=== PATIENT | female | born 1935 | race Caucasian/White ===

== ENCOUNTER → 2016-09-21 | Outpatient (CLI) | payer OTHER, MEDICARE ==
--- NOTE | 2016-09-21 19:56 | DX ---
Lumbar Spine, 2 Views HISTORY: Lumbar fusion June 2016. COMPARISON: August 2016. FINDINGS: Bilateral transpedicular screws and fusion rods at the L4, L5 and S1 levels with hardware i ntact. L4-L5 interbody metallic disc prosthesis noted. Severe disc space narrowing at L5-S1. Normal a lignment at L4-L5 and L5-S1. L3-L4 moderate disc space narrowing with minimal retrolisthesis and predominantly ventral osteophytes . L2 old moderate anterior wedge compression fracture with methyl methacrylate cement within the ventra l aspect vertebral body, L1-L2 disc space level, and extending ventrally and to the right of the L1 v ertebral body. No new compression fractures. Minimal retrolisthesis at L1-L2. L2-L3 moderate disc spa ce narrowing and mild retrolisthesis similar to previous study. Left total hip arthroplasty noted. Mild levoscoliosis. IMPRESSION: 1. No significant interval change. 2. L4-S1 discectomy with fusion hardware appearing intact. 3. L2 stable old moderate compression fracture. Consider DEXA bone scan evaluation for osteoporosis i f clinically indicated.
== END ==
LOC: FIMAGING 10:00
DX: Z09 Encounter for follow-up examination after completed treatment for conditions other than malignant neoplasm (principal); Z98.1 Arthrodesis status

== ENCOUNTER → 2017-01-04 | Outpatient (CLI) | payer OTHER, MEDICARE | LOC: FIMAGING 11:16 | PROVIDERS: ATTEND Physician Assistant | DX: Z09 Encounter for follow-up examination after completed treatment for conditions other than malignant neoplasm (principal); Z98.1 Arthrodesis status ==

== ENCOUNTER → 2017-01-20 | Outpatient (CLI) | payer OTHER, MEDICARE | LOC: FIMAGING 08:45 | PROVIDERS: ATTEND Physician Assistant | DX: M48.06 Spinal stenosis, lumbar region (principal); M99.71 Connective tissue and disc stenosis of intervertebral foramina of cervical region; Z98.1 Arthrodesis status ==

== ENCOUNTER → 2017-05-01 | Outpatient (CLI) | payer OTHER, MEDICARE | LOC: FIMAGING 09:13 | PROVIDERS: ATTEND Nurse Practitioner | DX: Z09 Encounter for follow-up examination after completed treatment for conditions other than malignant neoplasm (principal); Z98.1 Arthrodesis status ==

== ENCOUNTER → 2017-05-10 | Outpatient (CLI) | payer OTHER, MEDICARE | LOC: FIMAGING 09:54 | PROVIDERS: ATTEND Internal Medicine | DX: Z12.31 Encounter for screening mammogram for malignant neoplasm of breast (principal); N63 Unspecified lump in breast; Z85.3 Personal history of malignant neoplasm of breast | CPT/HCPCS: G0202 ==

== ENCOUNTER → 2017-05-16 | Outpatient (CLI) | payer OTHER, MEDICARE | LOC: FIMAGING 12:23 | PROVIDERS: ATTEND Internal Medicine | DX: Z12.39 Encounter for other screening for malignant neoplasm of breast (principal); N63 Unspecified lump in breast ==

== ENCOUNTER → 2017-05-24 | Outpatient (CLI) | payer OTHER, MEDICARE | LOC: FIMAGING 11:23 | PROVIDERS: ATTEND Physical Medicine & Rehabilitation | DX: Z13.83 Encounter for screening for respiratory disorder NEC (principal); Z85.3 Personal history of malignant neoplasm of breast; Z87.891 Personal history of nicotine dependence ==

== ENCOUNTER → 2017-05-30 | Outpatient (CLI) | payer OTHER, MEDICARE ==
[~2017-05-30] MED LIST: BUPIVACAINE 0.5% 10 ML SDV ONE; LIDO/EPI 1% **Not for Epidural 20 ML MDV ONE; LIDOCAINE 1% 300 MG/30 ML SDV ONE; THROMBIN (BOVINE) 5,000 UNIT VIAL TP ONE
== END ==
LOC: FIMAGING 08:13
PROVIDERS: ATTEND Internal Medicine
PROC: 0HBU3ZX Excision of Left Breast, Percutaneous Approach, Diagnostic (ICD-10-PCS; principal; 2017-05-30)
DX: D24.2 Benign neoplasm of left breast (principal)
CPT/HCPCS: 19083; G0206

== ENCOUNTER 2017-06-29 08:45 | Day surgery (SDC) | payer OTHER, MEDICARE ==
[2017-06-29] MEDS ORDERED: ceFAZolin 2 GM/SWFI 2 GM/20 ML SYR IVP ONE (09:18)
[2017-06-29] MEDS ORDERED: LR 1,000 ML IV SCH (09:18)
[2017-06-29] MEDS ORDERED: LIDOCAINE 1% 2 ML INJ ONE (09:20)
[2017-06-29] MEDS ORDERED: LR 1,000 ML IV ONE (09:36)
[2017-06-29] MEDS ORDERED: LIDOCAINE 1% 2 ML INJ ID PRN (09:36)
[2017-06-29] MEDS ORDERED: BUPIVACAINE 0.25% 30 ML SDV ONE ×2 (10:27→10:28)
[2017-06-29] MEDS ORDERED: LIDOCAINE 1% 300 MG/30 ML SDV ONE (10:29)
[2017-06-29] MEDS ORDERED: SODIUM BICARBONATE 10 MEQ/10 ML SYR IVP ONE (10:30)
--- NOTE | 2017-06-29 12:31 | PDHPUP ---
History & Physical Update H&P update statement: This history and physical update is based on an assessment of the patient which was completed after admission or registration (within 24 hours), but prior to the surgery/procedure. H&P update: H&P reviewed & patient examined, no change in patient's condition since H&P completed
--- NOTE | 2017-06-29 12:32 | PDANEPAE ---
ANE Past Medical History - Cardiovascular History Hx Hypertension: No Hx Arrhythmias: Yes Hx Chest Pain: No Hx Coronary Artery / Peripheral Vascular Disease: No Hx CHF / Valvular Disease: No Hx Palpitations: No Cardiovascular History Comment: svt. sa node ablations-2010. denies chest pain, palp since last ablation. hx murmurs.dx- atrial tachy. takes plavix. - Pulmonary History Hx COPD: Yes Hx Asthma/Reactive Airway Disease: No Hx Recent Upper Respiratory Infection: No Hx Oxygen in Use at Home: Yes O2 in Use at Home (L/minute): 2L NC while sleeping Hx Sleep Apnea: No Sleep Apnea Screening Result - Last Documented: Negative Pulmonary History Comment: smoked until 1975- smoked 20 yrs- 1/2ppd. wears 2lpm for altitude adjustment- if goes in to [facility], moved 5 yrs ago. has inhaler- mild copd, never uses. 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 hx cervical fx. hx vertigo- ok now. Six concussions- stage 2 x 5. - Endocrine History Hx Diabetes: No Endocrine History Comment: 2001- acute thyroiditis. 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 interstitual cystisis 1996 - Liver History Hx Hepatic Disorders: No - Neurological & Psychiatric Hx Hx Neurological and Psychiatric Disorders: No Neurological / Psychiatric History Comment: Stenosis/pain L2/L3 -back pain-no radiculopathy. INTERMITTENT VERTIGO - Cancer History Hx Cancer: Yes Cancer History Comment: breast ca- radiation, lumpectomy. 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 - Congenital Disorder History Hx Congenital Disorders: No - GI History Hx Gastrointestinal Disorders: Yes Gastrointestinal History Comment: gerd - Other Health History Other Health History: osteoporosis. pt was a rehab nurse/marble polisher. bridge-upper, bruises easily. osteoarthritis. - Chronic Pain History Chronic Pain: No - Surgical History Prior Surgeries: L5/S1 fused;. l shoulder replacement. r knee arthroplasty. reconstructed r ankle. l hip arthroplasty. 1975- r breast lumpectomy. c-sec x2. hysterectomy deborah ooph/salpin. ou- cataract surgery. blepheroplasty.appy. CAMACHO Review of Systems Review of Systems: - Exercise capacity METS (RN): 4 METS ANE Patient History - Allergies Allergies/Adverse Reactions: naproxen [From Naprosyn] Allergy (Severe, Verified 06/12/17 10:56) Anaphylaxis OPIOIDS Adverse Reaction (Uncoded 09/30/15 20:11) Vomiting - Home Medications Home Medications: CeleBREX 06/12/17 [Last Taken 1 Week Ago ~06/22/17] Gabapentin 06/12/17 [Last Taken 06/28/17] Tums 500MG (*) 06/12/17 [Last Taken 06/29/17] Nortriptyline HCl HS 06/29/17 [Last Taken 06/28/17] - NPO status NPO Since - Liquids (Date): 06/29/17 NPO Since - Liquids (Time): 07:00 NPO Since - Solids (Date): 06/28/17 NPO Since - Solids (Time): 18:30 - Smoking Hx Smoking Status: Former smoker - Family Anes Hx Family Hx Anesthesia Complications: none ANE Labs/Vital Signs - Vital Signs Blood Pressure: 139/68 Heart Rate: 58 Respiratory Rate: 14 O2 Sat (%): 95 Height: 154.94 cm Weight: 62.596 kg
[2017-06-29] MEDS ORDERED: MIDAZOLAM 2 MG/2 ML VIAL IVP ONE (12:35)
[2017-06-29] MEDS ORDERED: PROPOFOL/EMULSION 500 MG/50 ML BOTTLE IV ONE (12:46)
[2017-06-29] MEDS ORDERED: ONDANSETRON 4 MG/2 ML VIAL ONE (12:55)
[2017-06-29] MEDS ORDERED: fentaNYL 100 MCG/2 ML INJ IVP PRN (13:01)
[2017-06-29] MEDS ORDERED: ONDANSETRON 4 MG/2 ML VIAL IVP PRN (13:01)
[2017-06-29] MEDS ORDERED: NALOXONE HCL 0.4 MG/ML INJ IVP PRN (13:01)
--- NOTE | 2017-06-29 13:45 | POSTANESTH ---
Post Anesthetic Evaluation Cardiovascular Status: Normal, Stable Respiratory Status: Normal, Stable Level of Consciousness/Mental Status: Can Participate in Eval Pain Control: Adequate, Prn Tx Ordered Nausea/Vomiting Control: Adequate, Prn Tx Ordered Complications Possibly Related to Anesthesia: None Noted
[2017-06-29] MEDS ORDERED: HYDROCODONE/APAP 5/325 TAB PO PRN (13:48)
--- NOTE | 2017-06-29 13:48 | POSTOPPROG ---
Post Op Note Date of Operation: 06/29/17 Surgeon: Dominguez Jeff (, FACS) Anesthesiologist: Reggie Myers MD Pre-op Diagnosis: left breast mass Post-op Diagnosis: same Procedure: excisional biopsy left breast with mammo NL Findings: fibroglanduar breast tissue/ clip confirmed intra-op with specimen mammo Inf/Abcess present in the surg proc area at time of surgery?: No EBL: Minimal (10ml)
[2017-06-29 14:33] VITALS: TEMP 97
[2017-06-29 14:50] VITALS: BP 141/56; O2SAT 96
[2017-06-29 14:52] VITALS: PULSE 59; RESP 15
--- NOTE | 2017-06-29 19:34 | GOP ---
[f rep st] OPERATIVE REPORT DATE OF OPERATION: SURGEON: Dominguez Jeff MD, FACS ANESTHESIA: Monitored anesthesia care. ANESTHESIOLOGIST: Angel Myers MD. PREOPERATIVE DIAGNOSIS: Left breast mass. POSTOPERATIVE DIAGNOSIS: Left breast mass. PROCEDURE PERFORMED: Left excisional breast biopsy with preoperative mammogram guided needle localization. FINDINGS: Benign-appearing fibroglandular breast tissue excised with the previously deployed clip confirmed by specimen mammogram. Tissue inked for orientation and submitted for permanent section. ESTIMATED BLOOD LOSS: 10 cc. DESCRIPTION OF PROCEDURE: After informed consent was obtained, the patient was brought to the operating room and placed under mild sedation. The left breast was prepped and draped in the usual fashion. Patient had a wire exiting the breast in the upper inner quadrant directed medially and inferiorly. Before proceeding, a time-out and identification of the patient was performed. Images were reviewed in the OR on PACS. 1% lidocaine plain was used to infiltrate the areolar border. A circumareolar incision was made between the 9 o'clock and 1 o'clock position. Deep subcutaneous tissue dissection was performed with cautery and the wire was intercepted where it entered the skin approximately 4 cm from the areolar border. The breast tissue deep to the shaft and tip of the wire were infiltrated with 0.25% Marcaine and 1% lidocaine and excised widely approximately 1-1.5 cm in all directions using sharp dissection. Specimen was removed from the field and immediately inked with a margin marker kit for orientation and submitted for specimen mammogram. Hemostasis was secured within the cavity. Subcutaneous tissues were approximated with 3-0 Monocryl suture. Skin was closed with 4-0 Monocryl suture in a subcuticular fashion. Specimen mammogram showed the previously deployed clip to be within the specimen. Topical Dermabond was applied. The patient was returned to the recovery room in satisfactory condition. Needle, sponge, and instrument count were correct. COMPLICATIONS: None. /[id number]/MODL MTDD
== END 2017-06-29 15:28 | disposition home or self-care (01) ==
LOC: FSGY 08:45
PROVIDERS: ATTEND Surgery
PROC: 0HBU0ZX Excision of Left Breast, Open Approach, Diagnostic (ICD-10-PCS; principal; 2017-06-29 12:00)
DX: R92.8 Other abnormal and inconclusive findings on diagnostic imaging of breast (principal); Z85.3 Personal history of malignant neoplasm of breast
CPT/HCPCS: J0171; J0690; J2250; J2405; J2704

== ENCOUNTER → 2017-06-29 | Outpatient (CLI) | payer OTHER, MEDICARE ==
[~2017-06-29] MED LIST changes: -BUPIVACAINE 0.5% 10 ML SDV ONE; -LIDO/EPI 1% **Not for Epidural 20 ML MDV ONE; -THROMBIN (BOVINE) 5,000 UNIT VIAL TP ONE
== END ==
LOC: FIMAGING 07:04
PROVIDERS: ATTEND Surgery
PROC: 0HHU3YZ Insertion of Other Device into Left Breast, Percutaneous Approach (ICD-10-PCS; principal; 2017-06-29)
DX: R92.8 Other abnormal and inconclusive findings on diagnostic imaging of breast (principal); Z85.3 Personal history of malignant neoplasm of breast

== ENCOUNTER → 2017-10-24 | Outpatient (CLI) | payer OTHER, MEDICARE | LOC: BMCIMAGING 16:48 | PROVIDERS: ATTEND Internal Medicine | DX: R05 Cough (principal); R91.8 Other nonspecific abnormal finding of lung field ==

== ENCOUNTER → 2017-11-01 | Outpatient (CLI) | payer OTHER, MEDICARE | LOC: FIMAGING 11:34 | PROVIDERS: ATTEND Physician Assistant | DX: Z09 Encounter for follow-up examination after completed treatment for conditions other than malignant neoplasm (principal); Z98.1 Arthrodesis status ==

== ENCOUNTER → 2018-03-15 | Outpatient (CLI) | payer OTHER, MEDICARE | LOC: BHFA 13:30 | PROVIDERS: ATTEND Internal Medicine Cardiovascular Disease | DX: I47.1 Supraventricular tachycardia (principal) ==

== ENCOUNTER → 2018-05-30 | Outpatient (CLI) | payer OTHER, MEDICARE | LOC: FIMAGING 13:28 | PROVIDERS: ATTEND Surgery | DX: N60.02 Solitary cyst of left breast (principal) ==

== ENCOUNTER → 2018-06-03 | Outpatient (CLI) | payer OTHER, MEDICARE | LOC: FIMAGING 12:26 | PROVIDERS: ATTEND Physician Assistant | DX: Z09 Encounter for follow-up examination after completed treatment for conditions other than malignant neoplasm (principal); Z98.1 Arthrodesis status; H81.49 Vertigo of central origin, unspecified ear ==

== ENCOUNTER → 2018-06-29 | Outpatient (CLI) | payer OTHER, MEDICARE | LOC: FIMAGING 07:31 | PROVIDERS: ATTEND Orthopaedic Surgery | DX: M54.16 Radiculopathy, lumbar region (principal); M54.12 Radiculopathy, cervical region ==

== ENCOUNTER → 2018-07-16 | Outpatient (CLI) | payer OTHER, MEDICARE | LOC: BHFA 09:15 | PROVIDERS: ATTEND Internal Medicine | DX: I67.9 Cerebrovascular disease, unspecified (principal) ==